=== PATIENT | male | born 1965 | race Caucasian/White ===

== ENCOUNTER 2018-04-27 09:49 | Day surgery (SDC) | payer MEDICAID, OTHER ==
[2018-04-26 14:34] LABS: BASOPHILS % (AUTO) 0.5 % (0.0-2.0); EOSINOPHILS # (AUTO) 0.2 K/uL (0-0.4); EOSINOPHILS % (AUTO) 2.7 % (0.0-4.0); HEMATOCRIT 43.7 % (36-52); HEMOGLOBIN 14.7 g/dL (12.0-18.0); LYMPHOCYTES # (AUTO) 2.2 K/uL (2.0-11.5); LYMPHOCYTES % (AUTO) 35.7 % (20.5-51.1); MEAN CORPUSCULAR HEMOGLOBIN 31 pg (27-31); MEAN CORPUSCULAR HGB CONC 34 g/dL (33-37); MEAN CORPUSCULAR VOLUME 90.7 fL (80-94); MONOCYTES # (AUTO) 0.6 K/uL (0.8-1.0); MONOCYTES % (AUTO) 9.9 % (1.7-9.3); NEUTROPHILS # (AUTO) 3.1 K/uL (1.8-7.7); NEUTROPHILS % (AUTO) 51.2 % (42.2-75.2); PLATELET COUNT (AUTO) 180 K/uL (140-450); RED BLOOD CELL COUNT(AUTO) 4.82 MIL/uL (4.20-6.10); RED CELL DISTRIBUTION WIDTH 13.7 % (11.6-13.7); WHITE BLOOD COUNT (AUTO) 6.1 K/uL (4.8-10.8)
[2018-04-26 14:54] LABS: ANION GAP 17.8 (8-16); CARBON DIOXIDE 27.2 mmol/L (21-32); TOTAL BILIRUBIN 0.5 mg/dL (0.0-1.0)
[~2018-04-27] VITALS: Ht 170.2 cm; Wt 77.1 kg
[2018-04-27] MEDS ORDERED: PANT40EC PO (11:27)
[2018-04-27] MEDS ORDERED: CITA20TA15 PO (11:27)
[2018-04-27] MEDS ORDERED: PROP20TA29 PO (11:27)
[2018-04-27] MEDS ORDERED: SIMV10TA1 PO (11:27)
[2018-04-27] MEDS ORDERED: BENZ1TAB42 PO (11:27)
[2018-04-27] MEDS ORDERED: [UNRECOGNIZED DRUG - CODE] PO (11:27)
[2018-04-27] MEDS ORDERED: AMLO5TAB PO (11:27)
[2018-04-27] MEDS ORDERED: TRAZ-286 PO (11:27)
[2018-04-27] MEDS ORDERED: TAMS0.4C96 PO (11:27)
[2018-04-27] MEDS ORDERED: VITD1000 PO (11:27)
[2018-04-27] MEDS ORDERED: ASPI81CT89 PO (11:27)
[2018-04-27] MEDS ORDERED: DOCU-299 PO (11:27)
[2018-04-27] MEDS ORDERED: CLON0.5T PO (11:27)
[2018-04-27] MEDS ORDERED: PROPOFOL 200 MG/20 ML VIAL IV ONE (12:21)
[2018-04-27] MEDS ORDERED: LIDOCAINE 2% 100 MG/5 ML UJET TP ONE (12:26)
[2018-04-27] MEDS ORDERED: ONDANSETRON 4 MG/2 ML VIAL IVP PRN (12:40)
[2018-04-27] MEDS ORDERED: HYDROmorphone 1 MG/ML AMP IVP PRN (12:40)
== END 2018-04-27 14:50 | disposition home health service (06) ==
LOC: MDS 09:49 → MMU 09:49 → MDS 14:50
PROVIDERS: ATTEND Internal Medicine Gastroenterology
DX: Z12.11 Encounter for screening for malignant neoplasm of colon (principal); K63.89 Other specified diseases of intestine; I10 Essential (primary) hypertension; F41.9 Anxiety disorder, unspecified
CPT/HCPCS: 36415; 45378; 71045; 80053; 85025; 93005; J2704; J7030; J7120